=== PATIENT | female | born 1990 | race American Indian/Alaskan Native ===

== ENCOUNTER 2019-09-13 10:32 | Emergency (ER) | payer OTHER ==
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
[2019-09-13] MEDS ORDERED: MORPHINE 2 MG/1 ML INJ IV ONE (12:32)
[2019-09-13] MEDS ORDERED: LIDOCAINE 2%/EPINEPHRINE 1:100,000 VIAL (20 ML) INFILTRATI ONE (12:36)
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
[2019-09-13] MEDS ORDERED: SODIUM CHLORIDE IRRI 500 ML 500 ML IR ONE (13:02)
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
[2019-09-13 14:57] VITALS: BP 129/75
[2019-09-13] MEDS ORDERED: HYDROcodone/ACETAMINOPHEN 7.5-325MG TAB ONE (15:04)
[2019-09-13] MEDS ORDERED: HYDROcodone/ACETAMINOPHEN 7.5-325MG TAB PO ONE (15:05)
== END 2019-09-13 15:44 | disposition home or self-care (01) ==
LOC: ED 10:32
DX: S01.81XA Laceration without foreign body of other part of head, initial encounter (principal); Z79.899 Other long term (current) drug therapy; V49.49XA Driver injured in collision with other motor vehicles in traffic accident, initial encounter; Y93.89 Activity, other specified; Y92.410 Unspecified street and highway as the place of occurrence of the external cause; Y99.8 Other external cause status
CPT/HCPCS: 12053; 70450; 72125; 96374; 99284; J2270